=== PATIENT | male | born 1960 | race Caucasian/White ===

== ENCOUNTER 2023-01-19 16:30 | Inpatient (IN) ==
[2023-01-19 17:43] LABS: Basophils # (auto) 0.04 K/uL (0.00-0.20); Basophils % (auto) 0.5 %; Eosinophils # (auto) 0.14 K/uL (0.00-0.50); Eosinophils % (auto) 1.7 %; Hematocrit (blood only) 24.5 % (42.0-52.0); Hemoglobin 8.5 g/dl (14.0-18.0); Immature Granulocytes # (auto) 0.03 K/uL (0.01-0.20); Immature Granulocytes % (auto) 0.4 %; Lymphocytes # (auto) 0.86 K/uL (1.20-3.40); Lymphocytes % (auto) 10.4 %; Mean Corpuscular Hemoglobin 29.3 pg (25.0-34.0); Mean Corpuscular Hgb Conc 34.7 g/dL (32.0-36.0); Mean Corpuscular Volume 84.5 fL (80.0-100.0); Mean Platelet Volume 10.1 fL (9.4-12.4); Monocytes # (auto) 1.14 K/uL (0.11-0.59); Monocytes % (auto) 13.8 %; Neutrophils # (auto) 6.08 K/uL (1.40-6.50); Neutrophils % (auto) 73.2 %; Platelet Count 116 K/uL (130-400); RDW Coefficient of Variation 21.6 % (11.5-14.5); RDW Standard Deviation 64.1 fL (36.4-46.3); White Blood Count 8.29 K/ul (4.8-10.8)
[2023-01-19 17:53] LABS: Albumin Globulin Ratio 0.8 (0.9-2); Albumin Level 2.7 gm/dl (3.4-5.0); BUN Creatinine Ratio 20.3 (10-20); Bilirubin,Total 11.8 mg/dl (0.2-1.0); Calcium 7.7 mg/dl (8.6-10.3); Creatinine Clr Calc Pharmacy 124.5 ml/min; Est GFR (African American) 127.5 ml/min; Globulin 3.4 gm/dl (2.5-4.0); Potassium 3.5 mmol/L (3.5-5.1); Total Protein 6.1 gm/dl (6.0-8.3)
[2023-01-19 17:59] LABS: Troponin I High Sensitivity 10.6 pg/ml (0-20)
[2023-01-19 18:04] LABS: INR 1.2 (0.9-1.1); Prothrombin Time 13.1 Seconds (9.0-12.0)
[2023-01-19 18:16] LABS: Anisocytosis Present; Target Cells 2+
[2023-01-19] MEDS ORDERED: ONDANSETRON INJ 2 MG/ML 2 ML VIAL IV STA (18:38)
[2023-01-19] MEDS ORDERED: HYDROmorphone INJ 0.5 MG/0.5 ML SYR IV PRN (18:38)
[2023-01-19] MEDS: SODIUM CHLORIDE 0.9% 500 ML IV SCH (18:52)
--- NOTE | 2023-01-19 19:37 | Emergency Department Note ---
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 His GI procedure notes were reviewed. Patient had blood work and imaging ordered here. He was treated with IV Dilaudid and felt significantly better. Patient was gently hydrated. He had a CT scan with IV contrast performed. Patient had a mild anemia and thrombocytopenia on CBC but no leukocytosis. This is stable for him. Chemistry panel revealed hyponatremia. This is worse than prior. Patient was found to have an elevated bilirubin, alkaline phosphatase and AST. I did consult with [facility], . He was familiar with the patient's case. We did review the findings. Patient had a discharge total bilirubin of 11.4. Given the fact that his LFTs are similar it did not appear that there was a significant stent issue. He had no perforation on CT imaging. Patient prefers to stay here for work-up of this hyponatremia and significant ascites. Suspect this is related to his malignancy. [facility] felt that that is reasonable and they are available for consultation if necessary. Patient was reassessed and was pain-free. He was comfortable with the plan. Consultation was made with Dr. Reed, [facility] hospitalist service. Case was discussed and diagnostics were reviewed. Patient was evaluated in ER for further management. Care/management discussed with: Discussed with strategic manager Level of care consideration(s): After review of the information above and other included data, I feel the giorgio ent requires escalation of care to admission Triage Nursing notes: reviewed and agree them. Vital Signs: reviewed and remarkable for no significant abnormalities Additional History obtained from: Patient's regarding his recent hospitalizations Chronic Medical/Social Conditions affecting care: Metastatic cancer Prior /Outside records reviewed: GI information from [facility] reviewed. Prior hospitalization record reviewed regarding ERCP and transfer. Differential Diagnosis: Complication of metastatic cancer, complication of recent stenting procedures, pancreatitis, cholangitis, appendicitis, infections, diverticulitis, UTI, obstruction, mesenteric ischemia, aortic pathology, inflammatory bowel disease, renal colic, PUD, hernia, volvulus, constipation, as well as other pathologies. Diagnostics, independently interpreted by me: ECG: Twelve-lead ECG reveals a sinus rhythm with short MA at [address] and T wave abnormality. No ST elevation. Cardiac Monitoring: Cardiac monitoring ordered by me: The patient was placed on continuous cardiac monitoring and observed. It revealed a sinus rhythm at 85 bpm Medical decision rules: none Imaging studies: CT scan as noted above. Ascites. No free air. Bilateral pleural effusions noted. I refer you to the EMR for further details. HPI: The patient is a 62-year-old male who arrives for evaluation of abdominal pain. Patient recently was admitted to the hospital and had stents placed in his bile duct. He was transferred to [place] and they replaced his stents. Patient also noted that he had a mucosal perforation repaired endoscopically. Rates his pain as a 4 out of 10. His abdomen started to get more distended over the last several days. notes he is becoming more jaundiced. Patient has a history of metastatic colon cancer. Prior to transfer he was found to have lesions in the liver Pt denies LOC, headache, fevers, chills, diaphoresis, neck pain, chest pain, breathing difficulties, nausea, vomiting, back pain, melena, hematochezia, urinary symptoms, numbness, weakness, rash, or other complaints. PAST MEDICAL HISTORY: See Below, metastatic colon cancer PAST SURGICAL HISTORY: See Below, ERCP SOCIAL HISTORY: See Below, HOME MEDICATIONS: See Below ALLERGIES: See Below VITALS: See Below PHYSICAL EXAMINATION: GENERAL: Awake, alert, uncomfortable-appearing, in no distress HENT: Normocephalic, atraumatic. Oropharynx unremarkable. EYES: Normal conjunctiva. Sclera moderately-icteric. NECK: Inspection normal. Non-tender. Supple. No nuchal rigidity. FROM. No masses. RESPIRATORY: Clear to auscultation. No wheezes. No rales. Normal respiratory effort. CARDIAC: Normal rate. Normal rhythm. No murmurs. No rubs. Extremities warm and well perfused. Pulses equal. No JVD. GI: Soft, moderate-distended. Upper tenderness to palpation. No rebound or guarding. No masses. RECTAL: Deferred. MUSCULOSKELETAL: Atraumatic. Chest examination reveals no tenderness. The back is symmetrical on inspection without obvious abnormality. There is no CVA tenderness to palpation. No joint edema. LOWER EXTREMITIES: Calves are equal size bilaterally and non-tender. 2+ edema. No discoloration. NEURO: Normal sensorium. No sensory or motor deficits noted. SKIN: No rash. Moderate jaundice noted. 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 Surgical History H/O thumb surgery repair of amputation right distal phalanx of thumb History of surgery of liver S/P boone Family History Aunt Colon cancer, Onset Age: 65 Paternal Father Cancer unspecified Uncle Bone cancer, Onset Age: 60 Paternal Mother Heart disease Myocardial infarction 2x Hypertension Social History Smoking Status: Current every day smoker Tobacco Type: Cigars Second Hand Exposure: Yes; Do You Dip or Chew Tobacco: Yes (quit 10-15 years ago); Hx Alcohol Use: No Hx Substance Use: No Preferred Language: Moroccan Communication Ability: Effective Power Regulator Required: No Beliefs That Will Affect Care: None marital status: Current Living Situation: Spouse current occupational status: previously employed current occupation: [employer] How many Children do You have: 2 Feels Safe at Home: Yes Assistive Devices: None Allergies Allergies Allergy/AdvReac Type Severity Reaction Status Date / Time No Known Allergies Allergy Verified 01/04/23 13:38 Home Meds Home Medications Medication Instructions Recorded Confirmed amoxicillin 875 mg-potassium 1 tab PO UD 01/19/23 01/19/23 clavulanate 125 mg tablet pantoprazole 40 mg tablet,delayed 40 mg PO BID 01/19/23 01/19/23 release Results & Data (ED) Vital Signs Vital Signs - 24 hr 01/19/23 16:54 01/19/23 19:18 01/19/23 19:30 Temperature 36.9 C Temperature Source Temporal Artery Scan Pulse Rate 90 91 H 87 Respiratory Rate 16 22 Respiratory Effort / Characteristics Non-Labored Spontaneous Respiratory Depth Normal Respiratory Pattern Regular Blood Pressure 118/78 120/78 Blood Pressure Mean 91 92 Pulse Oximetry 97 92 Oxygen Delivery Method Room Air Sepsis Recent Fever Within 48 Hours No Sepsis New/Unexplained Change in Mental Status N/A Sepsis Action Taken by Nursing No Action Required 01/19/23 20:30 01/19/23 21:00 01/19/23 21:30 Temperature Temperature Source Pulse Rate 87 85 85 Respiratory Rate 19 18 19 Respiratory Effort / Characteristics Respiratory Depth Respiratory Pattern Blood Pressure 132/80 120/76 116/70 Blood Pressure Mean 97 90 85 Pulse Oximetry 93 93 90 Oxygen Delivery Method Sepsis Recent Fever Within 48 Hours Sepsis New/Unexplained Change in Mental Status Sepsis Action Taken by Nursing Laboratory Data 01/19/23 17:11 01/19/23 17:11 Lab Results 01/19/23 01/19/23 01/19/23 Range/Units 17:11 17:11 17:11 WBC 8.29 (4.8-10.8) K/ul RBC 2.90 L (4.70-6.10) M/uL Hgb 8.5 L (14.0-18.0) g/dl Hct 24.5 L (42.0-52.0) % MCV 84.5 (80.0-100.0) fL MCH 29.3 (25.0-34.0) pg MCHC 34.7 (32.0-36.0) g/dL RDW Std Deviation 64.1 H (36.4-46.3) fL RDW Coeff of Alex 21.6 H (11.5-14.5) % Plt Count 116 L (130-400) K/uL MPV 10.1 (9.4-12.4) fL Immature Gran % (Auto) 0.4 % Neut % (Auto) 73.2 % Lymph % (Auto) 10.4 % [place] % (Auto) 13.8 % Eos % (Auto) 1.7 % Baso % (Auto) 0.5 % Neut # (Auto) 6.08 (1.40-6.50) K/uL Lymph # (Auto) 0.86 L (1.20-3.40) K/uL [place] # (Auto) 1.14 H (0.11-0.59) K/uL Eos # (Auto) 0.14 (0.00-0.50) K/uL Baso # (Auto) 0.04 (0.00-0.20) K/uL Immature Gran # (Auto) 0.03 (0.01-0.20) K/uL Anisocytosis Present Target Cells 2+ PT 13.1 H (9.0-12.0) Seconds INR 1.2 H (0.9-1.1) Sodium 127 L (136-145) mmol/L Potassium 3.5 (3.5-5.1) mmol/L Chloride 98 (98-107) mmol/L Carbon Dioxide 22 (21-32) mmol/L Anion Gap 7 (3-11) BUN 12 (6-23) mg/dl Creatinine 0.59 L (0.6-1.4) mg/dl Est Cr Clr Drug Dosing 124.5 ml/min Est GFR ( Amer) 127.5 ml/min Est GFR (Non-Af Amer) 110.0 ml/min BUN/Creatinine Ratio 20.3 H (10-20) Glucose 165 H (70-99(Fasting)) mg/dl Calcium 7.7 L (8.6-10.3) mg/dl Total Bilirubin 11.8 H (0.2-1.0) mg/dl AST 73 H (13-39) U/L ALT 43 (7-52) U/L Alkaline Phosphatase 441 H (34-104) U/L Troponin I High Sens 10.6 (0-20) pg/ml Total Protein 6.1 (6.0-8.3) gm/dl Albumin 2.7 L (3.4-5.0) gm/dl Globulin 3.4 (2.5-4.0) gm/dl Albumin/Globulin Ratio 0.8 L (0.9-2) Lipase 54 (11-82) U/L Administered Medications Hydromorphone HCl (Hydromorphone Inj 0.5 Mg/0.5 Ml Syr) 0.5 mg IV Q15M PRN PRN Reason: Pain Stop: 02/02/23 18:37 Last Admin: 01/19/23 18:57 Dose: 0.5 mg Documented By: NRB Sodium Chloride (Nss) 500 mls @ 80 mls/hr IV .Q6H15M JIL Stop: 02/18/23 18:44 Last Admin: 01/19/23 18:52 Dose: 80 mls/hr Documented By: NRB Discontinued Medications Ioversol (Optiray 320 100ml) 91 ml IV ONCE ONE Stop: 01/19/23 20:08 Last Admin: 01/19/23 20:07 Dose: 91 ml Documented By: JOB Ondansetron HCl (Ondansetron Inj 2 Mg/Ml 2 Ml Vial) 4 mg IV NOW STA Stop: 01/19/23 18:39 Last Admin: 01/19/23 18:52 Dose: 4 mg Documented By: DEBRA Imaging Data Radiologist's Impression: Abdomen/Pelvis CT 01/19/23 18:37 Exam(s): CT ABDOMEN + PELVIS With Contrast IV Amt: 91 ml opti 320 EXAM: CT Abdomen and Pelvis With Intravenous Contrast CLINICAL HISTORY: Reason for exam: elevated lfts, recent endoscopy, abd distension. TECHNIQUE: Axial computed tomography images of the abdomen and pelvis with intravenous contrast. CTDI is 20.56 mGy and DLP is 1062.38 mGy-cm. Automated exposure control was utilized for the study. A dose lowering technique was utilized adhering to the principles of ALARA. CONTRAST: Patient received 91 ml opti 320 of IV contrast COMPARISON: MRCP on 01/08/2023. CT abdomen/pelvis on 01/03/2023. FINDINGS: Lung bases: Dependent atelectasis bilaterally. Pleural space: Moderate bilateral pleural effusions. Mediastinum: Mild prominence of the santamaria of the distal esophagus may represent esophagitis. ABDOMEN: Liver: Hypoattenuating masses, most prominently in the right liver, concerning for hepatic metastases. Surgical clips along the liver. Gallbladder and bile ducts: Prior cholecystectomy. Common bile duct stent in place. Pneumobilia. Pancreas: Mild atrophy of the pancreas. No ductal dilation. Spleen: Unremarkable. No splenomegaly. Adrenals: Unremarkable. No mass. Kidneys and ureters: Unremarkable. No hydronephrosis or obstructing stone. Stomach and bowel: Wall thickening of the stomach may be secondary to under distention versus gastritis versus neoplasm. Asymmetric thinning of the wall of the gastric antrum appears similar compared to prior exam. Mild prominence of the santamaria of the colon may be secondary to underdistention. Colitis is not excluded. Fluid and gas-filled small bowel loops with mild prominence of the small bowel santamaria. Question enteritis. PELVIS: Appendix: No findings to suggest acute appendicitis. Bladder: Unremarkable. No mass. Reproductive: Unremarkable as visualized. ABDOMEN and PELVIS: Intraperitoneal space: Large amount of ascites. No free air. Bones/joints: Degenerative changes of the spine. Bilateral L4 pars defects. Grade 1 anterolisthesis of L4 on L5. No acute fracture. No dislocation. Soft tissues: Mild bilateral gynecomastia. Small umbilical hernia containing fat and fluid. [place] protrusion along the upper anterior abdominal wall. Vasculature: Atherosclerotic changes of the vasculature. No aortic aneurysm or dissection. Lymph nodes: Unremarkable. No enlarged lymph nodes. IMPRESSION: 1. Mild prominence of the santamaria of the distal esophagus may represent esophagitis. 2. Wall thickening of the stomach may be secondary to under distention versus gastritis versus neoplasm. Asymmetric thinning of the wall of the gastric antrum appears similar compared to prior exam. 3. Hypoattenuating masses again noted, most prominently in the right liver, concerning for hepatic metastases. 4. Mild prominence of the santamaria of the colon may be secondary to underdistention. Colitis is not excluded. 5. Fluid and gas-filled small bowel loops with mild prominence of the small bowel santamaria. Question enteritis. 6. Large amount of ascites. 7. Moderate bilateral pleural effusions. Electronically signed by: Reggie Echeverria M.D. 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
[2023-01-19] MEDS ORDERED: OPTIRAY 320 100ml IV ONE (20:07)
--- NOTE | 2023-01-19 21:05 | CT Scan Report ---
Exam(s): CT ABDOMEN + PELVIS With Contrast IV Amt: 91 ml opti 320 EXAM: CT Abdomen and Pelvis With Intravenous Contrast CLINICAL HISTORY: Reason for exam: elevated lfts, recent endoscopy, abd distension. TECHNIQUE: Axial computed tomography images of the abdomen and pelvis with intravenous contrast. CTDI is 20.56 mGy and DLP is 1062.38 mGy-cm. Automated exposure control was utilized for the study. A dose lowering technique was utilized adhering to the principles of ALARA. CONTRAST: Patient received 91 ml opti 320 of IV contrast COMPARISON: MRCP on 01/08/2023. CT abdomen/pelvis on 01/03/2023. FINDINGS: Lung bases: Dependent atelectasis bilaterally. Pleural space: Moderate bilateral pleural effusions. Mediastinum: Mild prominence of the santamaria of the distal esophagus may represent esophagitis. ABDOMEN: Liver: Hypoattenuating masses, most prominently in the right liver, concerning for hepatic metastases. Surgical clips along the liver. Gallbladder and bile ducts: Prior cholecystectomy. Common bile duct stent in place. Pneumobilia. Pancreas: Mild atrophy of the pancreas. No ductal dilation. Spleen: Unremarkable. No splenomegaly. Adrenals: Unremarkable. No mass. Kidneys and ureters: Unremarkable. No hydronephrosis or obstructing stone. Stomach and bowel: Wall thickening of the stomach may be secondary to under distention versus gastritis versus neoplasm. Asymmetric thinning of the wall of the gastric antrum appears similar compared to prior exam. Mild prominence of the santamaria of the colon may be secondary to underdistention. Colitis is not excluded. Fluid and gas-filled small bowel loops with mild prominence of the small bowel santamaria. Question enteritis. PELVIS: Appendix: No findings to suggest acute appendicitis. Bladder: Unremarkable. No mass. Reproductive: Unremarkable as visualized. ABDOMEN and PELVIS: Intraperitoneal space: Large amount of ascites. No free air. Bones/joints: Degenerative changes of the spine. Bilateral L4 pars defects. Grade 1 anterolisthesis of L4 on L5. No acute fracture. No dislocation. Soft tissues: Mild bilateral gynecomastia. Small umbilical hernia containing fat and fluid. [place] protrusion along the upper anterior abdominal wall. Vasculature: Atherosclerotic changes of the vasculature. No aortic aneurysm or dissection. Lymph nodes: Unremarkable. No enlarged lymph nodes. IMPRESSION: 1. Mild prominence of the santamaria of the distal esophagus may represent esophagitis. 2. Wall thickening of the stomach may be secondary to under distention versus gastritis versus neoplasm. Asymmetric thinning of the wall of the gastric antrum appears similar compared to prior exam. 3. Hypoattenuating masses again noted, most prominently in the right liver, concerning for hepatic metastases. 4. Mild prominence of the santamaria of the colon may be secondary to underdistention. Colitis is not excluded. 5. Fluid and gas-filled small bowel loops with mild prominence of the small bowel santamaria. Question enteritis. 6. Large amount of ascites. 7. Moderate bilateral pleural effusions. Electronically signed by: Reggie Echeverria M.D. 01/19/23 21:04 PM
--- NOTE | 2023-01-20 01:19 | History & Physical Report ---
Date of Service January 20, 2023 Assessment & Plan (1) Elevated LFTs: Plan: 62-year-old male with past medical significant for rectal cancer stage IV with metastatic to liver and acquired thrombocytopenia present abdominal pain and elevated LFTs. Elevated LFTs History of rectal cancer stage IV with mets to liver Recently he had had biliary stent placement and was transferred to [place] where stent exchange was done Total bili 11.8 today seems to close to discharged from [facility] couple of days ago ER talk to [facility] on-call and was okay to observe patient here in the hospital and to call them if necessary We will follow repeat labs Consult GI in a.m. Ascites May need to be tapped Consult GI in a.m. for recommendations Hyponatremia Sodium 127 We will follow urine sodium and urine osmolality and serum osmolality Getting gentle fluids Further repeat labs in a.m. Consult nephrology Esophagitis On Protonix Hypocalcemia We will check vitamin D level We will place him calcium supplements History of thrombocytopenia Platelets 116 DVT prophylaxis. Lovenox. Follow platelets Disposition med/telemetry Full code as per discussion with the patient History of Present Illness Chief Complaint: Abdominal pain and elevated LFTs Primary Care Provider: Jose Baeza MD 62-year-old male with past medical significant for rectal cancer stage IV with metastatic to liver and acquired thrombocytopenia presents with abdominal pain and elevated LFTs. Patient was recently in the hospital with hyper bilirubinemia and right upper quadrant abdominal pain pain. S/p endoscopic ultrasound with ERCP with Dr. Desai on January 10, 20[address] prophylactic pancreatic stent and also short biliary stent. 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 Patient was transferred to [facility] and seems patient has stent exchange. Patient states his bilirubin was decreasing and he was discharged couple of days ago. Again patient says he was turning yellow and developing abdominal pain so came to the hospital. ER patient talked with [facility] doctor international guest coordinator who was familiar with the patient's case. Seems patient's bilirubin was 11.4 on discharge from [facility] and today 11.8. Also CT abdomen pelvis seems no acute findings and [facility] recommended to observe patient here and consult them if necessary. Patient denies any fevers. No headache. Has some back pain from abdominal bloating. Some nausea. Poor appetite. No difficulty swallowing. Has dry cough. Has on and off runny nose. No chest pain. Has some shortness of breath on exertion. Normal bowel and bladder movements. Says he cannot ambulate much because of shortness of breath on exertion. Currently hemodynamically stable. Past medical history as mentioned above. Past surgical history. Colonoscopy. History of surgery of liver. ERCP. S/p cholecystectomy. Social history. History of smoking present. No alcohol use. No drug use. Family history. Mother had DE. And hypertension. Father had cancer. Paternal aunt has colon cancer. 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 Surgical History H/O thumb surgery repair of amputation right distal phalanx of thumb History of surgery of liver S/P boone Family History Aunt Colon cancer, Onset Age: 65 Paternal Father Cancer unspecified Uncle Bone cancer, Onset Age: 60 Paternal Mother Heart disease Myocardial infarction 2x Hypertension Social History Smoking Status: Current every day smoker Tobacco Type: Cigars Second Hand Exposure: Yes; Do You Dip or Chew Tobacco: Yes (quit 10-15 years ago); Hx Alcohol Use: No Hx Substance Use: No Preferred Language: Irish Communication Ability: Effective Meat Stock Clerk Required: No Beliefs That Will Affect Care: None marital status: Current Living Situation: Spouse current occupational status: previously employed 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 Head- atraumatic Eyes- PERRL. ENT- oropharynx clear Neck- supple, no JVD Lungs- clear to auscultation no wheezing or crackles. Heart- regular rhythm; no murmur, no gallop. Abdomen- normal bowel sounds, distended, mild diffuse tender. Extremities- no pretibial edema. Neuro- alert, oriented x 3; PERRL, no facial palsy; no dysarthria;non focal. Skin- yellowish discoloration. Results & Data Results & Data Vital Signs (Past 12 Hours) Vital Signs Temp Pulse Resp BP Pulse Ox O2 Del Method 01/20/23 00:00 80 19 122/72 91 01/19/23 23:30 77 15 114/72 90 01/19/23 23:00 80 18 112/68 92 01/19/23 22:30 81 19 125/72 92 01/19/23 22:00 81 15 121/69 93 01/19/23 23:16 79 01/19/23 21:30 85 19 116/70 90 01/19/23 21:00 85 18 120/76 93 01/19/23 20:30 87 19 132/80 93 01/19/23 19:30 87 22 120/78 92 01/19/23 19:18 91 H 01/19/23 16:54 36.9 C 90 16 118/78 97 Room Air Diagnostic Findings Laboratory Results WBC 8.29 K/ul (4.8-10.8) 01/19/23 17:11 RBC 2.90 M/uL (4.70-6.10) L 01/19/23 17:11 Hgb 8.5 g/dl (14.0-18.0) L 01/19/23 17:11 Hct 24.5 % (42.0-52.0) L 01/19/23 17:11 MCV 84.5 fL (80.0-100.0) 01/19/23 17:11 MCH 29.3 pg (25.0-34.0) 01/19/23 17:11 MCHC 34.7 g/dL (32.0-36.0) 01/19/23 17:11 RDW Std Deviation 64.1 fL (36.4-46.3) H 01/19/23 17:11 RDW Coeff of Alex 21.6 % (11.5-14.5) H 01/19/23 17:11 Plt Count 116 K/uL (130-400) L 01/19/23 17:11 MPV 10.1 fL (9.4-12.4) 01/19/23 17:11 Immature Gran % (Auto) 0.4 % 01/19/23 17:11 Neut % (Auto) 73.2 % 01/19/23 17:11 Lymph % (Auto) 10.4 % 01/19/23 17:11 Meade % (Auto) 13.8 % 01/19/23 17:11 Eos % (Auto) 1.7 % 01/19/23 17:11 Baso % (Auto) 0.5 % 01/19/23 17:11 Neut # (Auto) 6.08 K/uL (1.40-6.50) 01/19/23 17:11 Lymph # (Auto) 0.86 K/uL (1.20-3.40) L 01/19/23 17:11 Meade # (Auto) 1.14 K/uL (0.11-0.59) H 01/19/23 17:11 Eos # (Auto) 0.14 K/uL (0.00-0.50) 01/19/23 17:11 Baso # (Auto) 0.04 K/uL (0.00-0.20) 01/19/23 17:11 Immature Gran # (Auto) 0.03 K/uL (0.01-0.20) 01/19/23 17:11 Anisocytosis Present 01/19/23 17:11 Target Cells 2+ 01/19/23 17:11 PT 13.1 Seconds (9.0-12.0) H 01/19/23 17:11 INR 1.2 (0.9-1.1) H 01/19/23 17:11 Sodium 127 mmol/L (136-145) L 01/19/23 17:11 Potassium 3.5 mmol/L (3.5-5.1) 01/19/23 17:11 Chloride 98 mmol/L (98-107) 01/19/23 17:11 Carbon Dioxide 22 mmol/L (21-32) 01/19/23 17:11 Anion Gap 7 (3-11) 01/19/23 17:11 BUN 12 mg/dl (6-23) 01/19/23 17:11 Creatinine 0.59 mg/dl (0.6-1.4) L 01/19/23 17:11 Est Cr Clr Drug Dosing 124.5 ml/min 01/19/23 17:11 Est GFR ( Amer) 127.5 ml/min 01/19/23 17:11 Est GFR (Non-Af Amer) 110.0 ml/min 01/19/23 17:11 BUN/Creatinine Ratio 20.3 (10-20) H 01/19/23 17:11 Glucose 165 mg/dl (70-99(Fasting)) H 01/19/23 17:11 Calcium 7.7 mg/dl (8.6-10.3) L 01/19/23 17:11 Total Bilirubin 11.8 mg/dl (0.2-1.0) H 01/19/23 17:11 AST 73 U/L (13-39) H 01/19/23 17:11 ALT 43 U/L (7-52) 01/19/23 17:11 Alkaline Phosphatase 441 U/L (34-104) H 01/19/23 17:11 Troponin I High Sens 10.6 pg/ml (0-20) 01/19/23 17:11 Total Protein 6.1 gm/dl (6.0-8.3) 01/19/23 17:11 Albumin 2.7 gm/dl (3.4-5.0) L 01/19/23 17:11 Globulin 3.4 gm/dl (2.5-4.0) 01/19/23 17:11 Albumin/Globulin Ratio 0.8 (0.9-2) L 01/19/23 17:11 Lipase 54 U/L (11-82) 01/19/23 17:11 Impressions Abdomen/Pelvis CT 01/19/23 18:37 Exam(s): CT ABDOMEN + PELVIS With Contrast IV Amt: 91 ml opti 320 EXAM: CT Abdomen and Pelvis With Intravenous Contrast CLINICAL HISTORY: Reason for exam: elevated lfts, recent endoscopy, abd distension. TECHNIQUE: Axial computed tomography images of the abdomen and pelvis with intravenous contrast. CTDI is 20.56 mGy and DLP is 1062.38 mGy-cm. Automated exposure control was utilized for the study. A dose lowering technique was utilized adhering to the principles of ALARA. CONTRAST: Patient received 91 ml opti 320 of IV contrast COMPARISON: MRCP on 01/08/2023. CT abdomen/pelvis on 01/03/2023. FINDINGS: Lung bases: Dependent atelectasis bilaterally. Pleural space: Moderate bilateral pleural effusions. Mediastinum: Mild prominence of the santamaria of the distal esophagus may represent esophagitis. ABDOMEN: Liver: Hypoattenuating masses, most prominently in the right liver, concerning for hepatic metastases. Surgical clips along the liver. Gallbladder and bile ducts: Prior cholecystectomy. Common bile duct stent in place. Pneumobilia. Pancreas: Mild atrophy of the pancreas. No ductal dilation. Spleen: Unremarkable. No splenomegaly. Adrenals: Unremarkable. No mass. Kidneys and ureters: Unremarkable. No hydronephrosis or obstructing stone. Stomach and bowel: Wall thickening of the stomach may be secondary to under distention versus gastritis versus neoplasm. Asymmetric thinning of the wall of the gastric antrum appears similar compared to prior exam. Mild prominence of the santamaria of the colon may be secondary to underdistention. Colitis is not excluded. Fluid and gas-filled small bowel loops with mild prominence of the small bowel santamaria. Question enteritis. PELVIS: Appendix: No findings to suggest acute appendicitis. Bladder: Unremarkable. No mass. Reproductive: Unremarkable as visualized. ABDOMEN and PELVIS: Intraperitoneal space: Large amount of ascites. No free air. Bones/joints: Degenerative changes of the spine. Bilateral L4 pars defects. Grade 1 anterolisthesis of L4 on L5. No acute fracture. No dislocation. Soft tissues: Mild bilateral gynecomastia. Small umbilical hernia containing fat and fluid. [place] protrusion along the upper anterior abdominal wall. Vasculature: Atherosclerotic changes of the vasculature. No aortic aneurysm or dissection. Lymph nodes: Unremarkable. No enlarged lymph nodes. IMPRESSION: 1. Mild prominence of the santamaria of the distal esophagus may represent esophagitis. 2. Wall thickening of the stomach may be secondary to under distention versus gastritis versus neoplasm. Asymmetric thinning of the wall of the gastric antrum appears similar compared to prior exam. 3. Hypoattenuating masses again noted, most prominently in the right liver, concerning for hepatic metastases. 4. Mild prominence of the santamaria of the colon may be secondary to underdistention. Colitis is not excluded. 5. Fluid and gas-filled small bowel loops with mild prominence of the small bowel santamaria. Question enteritis. 6. Large amount of ascites. 7. Moderate bilateral pleural effusions. Electronically signed by: Reggie Echeverria M.D. 01/19/23 21:04 PM ECG Additional Comments: ECG. Sinus rhythm with short NC rate of 86. Nonspecific ST abnormalities. Code Status & VTE Plan VTE Prophylaxis Plan VTE Prophylaxis will be ordered: Yes
[2023-01-20] MEDS: SODIUM CHLORIDE 0.9% 500 ML IV SCH (02:53)
[2023-01-20] MEDS ORDERED: ONDANSETRON INJ 2 MG/ML 2 ML VIAL IV PRN (03:09)
[2023-01-20] MEDS ORDERED: NITROGLYCERIN SL 0.4 MG/TAB TAB SL PRN (03:09)
[2023-01-20] MEDS ORDERED: POLYETHYLENE (MIRALAX) 17 GM PACK PO PRN (03:09)
[2023-01-20 04:46] LABS: Basophils # (auto) 0.04 K/uL (0.00-0.20); Basophils % (auto) 0.5 %; Eosinophils # (auto) 0.25 K/uL (0.00-0.50); Eosinophils % (auto) 3.3 %; Hematocrit (blood only) 22.2 % (42.0-52.0); Immature Granulocytes # (auto) 0.03 K/uL (0.01-0.20); Immature Granulocytes % (auto) 0.4 %; Lymphocytes # (auto) 0.85 K/uL (1.20-3.40); Lymphocytes % (auto) 11.1 %; Mean Corpuscular Volume 83.1 fL (80.0-100.0); Mean Platelet Volume 9.6 fL (9.4-12.4); Monocytes # (auto) 1.31 K/uL (0.11-0.59); Monocytes % (auto) 17.1 %; Neutrophils # (auto) 5.16 K/uL (1.40-6.50); Neutrophils % (auto) 67.6 %; Platelet Count 99 K/uL (130-400); RDW Standard Deviation 62.3 fL (36.4-46.3); Red Blood Count 2.67 M/uL (4.70-6.10); White Blood Count 7.64 K/ul (4.8-10.8)
[2023-01-20 05:02] LABS: BUN Creatinine Ratio 19.3 (10-20); Calcium 7.5 mg/dl (8.6-10.3); Creatinine Clr Calc Pharmacy 128.8 ml/min; Est GFR (African American) 129.4 ml/min; Est GFR (Non-African American) 111.6 ml/min; Magnesium 1.8 mg/dl (1.7-2.4); Potassium 3.4 mmol/L (3.5-5.1)
[2023-01-20 05:03] LABS: Anisocytosis Present; Polychromasia 1+; Target Cells 1+
[2023-01-20] MEDS: SODIUM CHLORIDE 0.9% 1,000 ML IV SCH (08:15)
--- NOTE | 2023-01-20 09:03 | Nephrology Consultation ---
Date of Consultation January 20, 2023 Assessment & Plan (1) Chronic hyponatremia: presented w/ sodium 127, up to 130 this am w/ IV fluids. has been low 130s for several weeks now. goal is to keep sNa in this range or normalize if able. favor hypervolemic hyponatremia but currently responding as though volume depleted, c/w total body overload but intravascular depletion -await urine studies -supplemented K po and IV -continue low rate NS while NPO and agree w/ albumin -recheck bmp q6h while NPO -will eventually need fluid limit but defer while NPO appreciate consult; will follow w/ you. History of Present Illness Reason for Consultation: hyponatremia Requesting Physician: Dr Reed Attending Physician: Samuel Melton MD History of Present Illness 62 y/o M whom I'm asked to see for hyponatremia was admitted last evening for evaluation of abdominal pain and elevated LFTs in the setting of metastatic rectal cancer. PMH includes Stage IV rectal CA w/ liver mets, acquired thrombocytopenia, active tobacco abuse/cigarettes, chronic hyponatremia. He had liver surgery [facility] April 2022; has required paracenteses he tells me, most recently 05/2022. Pt was hospitalized here earlier this month with hyperbilirubinemia and right upper quadrant abdominal pain, s/p endoscopic ultrasound with ERCP on January 10w/ placement of prophylactic pancreatic and also short biliary stents. Ultimately the pt was transferred to [facility] for management of stricture caused by portal LAD versus surgical CBD clips; at [facility] he underwent stent exchange and was d/c a few days back. His bilirubin was 11.4 on date of [facility] discharge and on arrival here was 11.8. CT a/p overnight w/o acute changes; [facility] recommends monitoring pt here. His presenting sodium was 127, up to 130 this am. He has 500 mL NS then 50 mL hourly ever since. since late Dec 2022 at least, sodium runs low 130s in ho spital. He is NPO currently pending GI evaluation. No F or ESC[place]EDO or dysphagia. significant abdominal distension/bloating and pain > N, decreased po, back pain, exertional dsypnea. No headache or chest pain or concerns w/ bowel/bladder movements. +nonproductive cough. 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 Surgical History H/O thumb surgery repair of amputation right distal phalanx of thumb History of surgery of liver S/P boone Family History Aunt Colon cancer, Onset Age: 65 Paternal Father Cancer unspecified Uncle Bone cancer, Onset Age: 60 Paternal Mother Heart disease Myocardial infarction 2x Hypertension Social History Smoking Status: Current some day smoker Tobacco Type: Cigarettes Second Hand Exposure: No; Do You Dip or Chew Tobacco: No; Tobacco Cessation Education Requested by Patient: No Hx Alcohol Use: No Hx Substance Use: No Preferred Language: Libyan Communication Ability: Effective 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 Beliefs That Will Affect Care: None marital status: Current Living Situation: Spouse current occupational status: previously employed current occupation: [employer] How many Children do You have: 2 Feels Safe at Home: Yes Safety Concerns: Feels Safe At This Time Assistive Devices: None Review of Systems Review of Systems: All systems reviewed & are unremarkable except as noted in HPI & below Physical Exam Constitutional: well developed, well nourished, + frail appearing and cooperative; no acute distress Eyes: EOM intact bilaterally; sclerae not anicteric ENMT: Ears: no external ear abnormality Nose: no external nose abnormality Mouth: + dry oral mucous membranes Neck: no nuchal rigidity Respiratory: normal respiratory effort and + labored breathing (w/ exam maneuvers such as rolling on guerney) Auscultation: + diminished lung sounds (particularly bilateral bases) Cardiovascular: RRR, no murmur, no edema Gastrointestinal (Abdomen): Inspection/Auscultation: + abdomen distended and normal bowel sounds Percussion/Palpation: + abdomen tender, abdomen soft and + abdomen firm Musculoskeletal: Extremities: strength 5/5 throughout Skin: no rashes, warm and dry + jaundice Neurologic: soto, fluent speech, no tremor Results & Data Vital Signs (Past 12 Hours) Vital Signs Pulse Resp BP Pulse Ox O2 Del Method 01/20/23 07:00 75 18 123/83 92 Room Air 01/20/23 07:07 74 01/20/23 06:30 75 17 119/76 92 01/20/23 06:30 119/76 01/20/23 06:00 82 22 128/71 93 01/20/23 05:30 73 16 122/77 93 01/20/23 05:00 73 17 121/75 93 01/20/23 04:30 74 15 123/74 93 01/20/23 04:00 82 21 129/72 90 01/20/23 03:30 73 16 115/67 93 01/20/23 03:00 75 16 122/69 93 01/20/23 02:30 73 21 123/67 94 01/20/23 02:00 76 21 117/69 93 01/20/23 01:30 82 21 102/48 L 93 01/20/23 01:00 79 18 122/65 91 01/20/23 00:30 84 18 123/69 91 01/20/23 00:00 80 19 122/72 91 01/19/23 23:30 77 15 114/72 90 01/19/23 23:00 80 18 112/68 92 01/19/23 22:30 81 19 125/72 92 01/19/23 22:00 81 15 121/69 93 01/19/23 23:16 79 01/19/23 21:30 85 19 116/70 90 01/19/23 21:00 85 18 120/76 93 Laboratory Results 01/20/23 04:26 01/20/23 04:[address] a/p w/ con
[2023-01-20] MEDS ORDERED: POTASSIUM CHLORIDE CRTAB 20 MEQ TABCR PO ONE ×2 (09:15→16:45)
[2023-01-20] MEDS: AMOXICILLIN/CLAVULANATE 875 MG TAB PO SCH ×2 (09:55→17:02)
[2023-01-20] MEDS: CALCIUM 600MG + VIT D 400 IU TAB PO SCH ×2 (09:56→21:43)
[2023-01-20] MEDS: PANTOprazole 40 MG TAB PO SCH ×2 (09:56→21:43)
[2023-01-20] MEDS: ENOXAPARIN INJ 40 MG/0.4 ML SYR SQ SCH (09:56)
--- NOTE | 2023-01-20 11:14 | Gastrointestinal Consultation ---
Date of Consultation January 20, 2023 Assessment & Plan (1) Elevated LFTs: Imaging was reviewed by Dr. Romeo. He would not benefit from repeat ERCP or other GI procedures. His elevated LFTs are secondary to the metastatic liver disease. (2) Abdominal pain: What he is describing currently seems most likely to be a result of having a bxxqddem-wb-srovi amount of ascites. his pain will likely improve with the paracentesis. However, he has a large (liver) metastatic burden and would be expected to have diffuse abdominal pain caused by that metastatic disease. Plan - Large volume paracentesis for comfort. Albumin before/after. I explained to the patient//daughter that ascitic fluid will recur. Undergoing paracentesis may improve some of his pain today but will not provide senior living pain relief. Patient/family are interested in a senior living cathetor to drain the fluid at home. I encouraged him to speak with the radiologist about his request but suspect that risks of infection may out weight benefits, especially in light of his ascites developing slowly over time so would not expect the need for frequent draining of ascitic fluid. Defer senior living pain management to his primary and oncology teams. Unfortunately due to hyperbilirubinemia he may no longer be a candidate for chemotherapy. Pt to discuss w oncology. It may be appropriate to be offering palliative care/comfort care which I briefly mentioned to the pt and family but did not cover in detail. Would defer possible other treatment options to his oncologist. No indication for repeat GI procedures. GI will sign off. History of Present Illness Reason for Consultation: Elevated LFTs Requesting Physician: Dr. Reed Attending Physician: Samuel Melton MD History of Present Illness Mr. Brodie Osorio is a 62 yr old [facility] w a hx of Colon ca w liver mets, probably cirrhosis who was admitted herer for GI upper abd pain/GI bleeding 2 wks at that time underwent EGD on 01/04 w non bleeding Grade II EV w/o evidence of bleeding. Then a few days later, returned w RUQ pain and bili of 11 and underwent EUS on 01/10/[address] Desai w liver mets, and ERCP w a CBD stricture that was stented. Soon after the ERCP, he was transferred to [facility] and underwent stent placement. He was discharged from there a few days ago and presented to the ED late yesterday for pain. On arrival here yesterday, T bili 11 (similar to prior to stenting) and CTAP w several abnormalities but pneumobilia was present suggesting patency of the recently placed CBD stents. When talking with him about his exact reason for coming to the ED, it was diffuse abdominal pain that has been present for weeks and has become much worse in the last day or two. Also describes vague discomfort in the mid back. He cites fullness over his entire abdomen and says that he has some chest discomfort with a deep breath, and feels a bit short of breath when he tries to be active. He has a poor appetite but has not had nausea or vomiting since DC from [place] a few days ago. He denies constipation or diarrhea. No blood in his bowel movements. No hematemesis. He is not had fevers. 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 Surgical History H/O thumb surgery repair of amputation right distal phalanx of thumb History of surgery of liver S/P boone Family History Aunt Colon cancer, Onset Age: 65 Paternal Father Cancer unspecified Uncle Bone cancer, Onset Age: 60 Paternal Mother Heart disease Myocardial infarction 2x Hypertension Social History Smoking Status: Current every day smoker Tobacco Type: Cigars Second Hand Exposure: Yes; Do You Dip or Chew Tobacco: Yes (quit 10-15 years ago); Hx Alcohol Use: No Hx Substance Use: No Preferred Language: Romanian Communication Ability: Effective Manager Management Required: No Beliefs That Will Affect Care: Spiritual marital status: Current Living Situation: Spouse current occupational status: previously employed current occupation: [employer] How many Children do You have: 2 Feels Safe at Home: Yes Assistive Devices: None Review of Systems Review of Systems: ROS: Gen: Denies weakness, fevers, weight loss Eyes: No eye redness, or pain, no recent vision changes Resp: No SOB, no cough Cardio: No palpitations/irregular beats, no chest pain GI: As per HPI, otherwise (-) : Denies pain on urination Skin: No jaundice, itching or new rashes Physical Exam Constitutional: well developed, + ill appearing, + thin and cooperative Eyes: + icterus; pupils equal, reactive. ENMT: external ear and nose normal, oropharynx normal Neck: trachea midline, no thyromegaly Respiratory: normal respiratory effort, lungs clear to auscultation Cardiovascular: RRR, no murmur, no edema Gastrointestinal (Abdomen): Moderate ascites, not tense, diffuse discomfort over the entire abdomen. bowel sounds present. Results & Data Vital Signs (Past 12 Hours) Vital Signs Pulse Resp BP Pulse Ox O2 Del Method 01/20/23 07:00 75 18 123/83 92 Room Air 01/20/23 07:07 74 01/20/23 06:30 75 17 119/76 92 01/20/23 06:30 119/76 01/20/23 06:00 82 22 128/71 93 01/20/23 05:30 73 16 122/77 93 01/20/23 05:00 73 17 121/75 93 01/20/23 04:30 74 15 123/74 93 01/20/23 04:00 82 21 129/72 90 01/20/23 03:30 73 16 115/67 93 01/20/23 03:00 75 16 122/69 93 01/20/23 02:30 73 21 123/67 94 01/20/23 02:00 76 21 117/69 93 01/20/23 01:30 82 21 102/48 L 93 01/20/23 01:00 79 18 122/65 91 01/20/23 00:30 84 18 123/69 91 01/20/23 00:00 80 19 122/72 91 01/19/23 23:30 77 15 114/72 90 01/19/23 23:16 79 Laboratory Results WBC 7.4, Hb 8, Hct 22, Plts 99, Na 130, K 3.4, Cl 101, CO2 29, BUN 11, Cr 0.5, glucose 85. Diagnostic Findings CTAP w IV 01/19/23: 1. Mild prominence of the santamaria of the distal esophagus may represent esophagitis. 2. Wall thickening of the stomach may be secondary to under distention versus gastritis versus neoplasm. Asymmetric thinning of the wall of the gastric antrum appears similar compared to prior exam. 3. Hypoattenuating masses again noted, most prominently in the right liver, concerning for hepatic metastases. 4. Mild prominence of the santamaria of the colon may be secondary to underdistention. Colitis is not excluded. 5. Fluid and gas-filled small bowel loops with mild prominence of the small bowel santamaria. Question enteritis. 6. Large amount of ascites. 7. Moderate bilateral pleural effusions. EUS : - Multiple metastatic lesions were found in the left lobe of the liver. Fine needle aspiration performed. - There was no sign of significant pathology in the entire pancreas. - Endosonographic images of the left adrenal gland were unremarkable. - Ascites was found on endosonographic examination of the peritoneal cavity. - A few malignant-appearing lymph nodes were visualized in the duglas hepatis region. Fine needle aspiration performed. These are likely causing biliary obstruction. Based on the MRCP results we will proceed with ERCP today. ERCP : - The major papilla appeared normal. - A single segmental biliary stricture was found in the upper third of the main bile duct. The stricture was post-surgical and malignant appearing. - A pancreatic sphincterotomy was performed. - One biliary stent was placed into the common bile duct. - One pancreatic stent was placed into the ventral pancreatic duct.
[2023-01-20 11:25] LABS: BUN Creatinine Ratio 17.5 (10-20); Calcium 7.6 mg/dl (8.6-10.3); Creatinine Clr Calc Pharmacy 128.8 ml/min; Est GFR (African American) 129.4 ml/min; Est GFR (Non-African American) 111.6 ml/min; Potassium 3.5 mmol/L (3.5-5.1)
--- NOTE | 2023-01-20 12:19 | Electrocardiogram Report ---
Test Reason : Blood Pressure : / mmHG Vent. Rate : 086 BPM Atrial Rate : 086 BPM P-R Int : 102 ms QRS Dur : 086 ms QT Int : 366 ms P-R-T Axes : 023 031 085 degrees QTc Int : 437 ms Sinus rhythm with short WI Nonspecific ST and T wave abnormality Abnormal ECG No previous ECGs available Confirmed by Enoc Puente ([id number]) on 01/20/2023 12:18:44 PM Referred By: REFERRED SELF Confirmed By:Enoc Puente
[2023-01-20] MEDS ORDERED: ALBUMIN 25% 25 GM/100 ML VIAL IV ONE (13:18)
--- NOTE | 2023-01-20 16:15 | Ultrasound Report ---
IR paracentesis abd w/img US CLINICAL HISTORY: 62 years-old Male with malignant ascites; paracentesis for comfort. COMPARISON: CT 01/19/2023 PROCEDURE: The procedure was explained to the patient in the care including the benefits and possible risks/complications. The patient gave verbal understanding and written consent was obtained. A time -out was performed prior to the start of the procedure. The patient was placed on the ultrasound table in the supine position. Using ultrasound guidance, an appropriate procedure site in the right lower abdomen was marked. This area was then prepped and drap ed in the usual sterile fashion. Local anesthesia was achieved within 1% lidocaine. An 8-[place] cente sis catheter was then inserted. Approximately 2.8 liters of clear, yellowish fluid was removed and se nt to the lab for analysis. The catheter was removed and external pressure was held to achieve hemostasis. A sterile dressing was applied to the procedure site. The patient tolerated the procedure well without immediate complicati ons. IMPRESSION: Successful ultrasound-guided paracentesis with removal of 2.8 L of ascitic fluid ACT 112: Negative or not required by law. The above report was generated using voice recognition software. It may contain grammatical, syntax o r spelling errors. Electronically signed by: Jason Pfeiffer M.D. 01/20/2023 4:14 PM
[2023-01-20] MEDS ORDERED: ALBUMIN 25% 25 GM/100 ML VIAL IV STA (16:37)
[2023-01-20 17:42] LABS: BUN Creatinine Ratio 17.2 (10-20); Calcium 7.5 mg/dl (8.6-10.3); Est GFR (African American) 128.4 ml/min; Est GFR (Non-African American) 110.8 ml/min; Potassium 3.4 mmol/L (3.5-5.1)
[2023-01-20] MEDS: POTASSIUM CHLORIDE / WTR 10 MEQ/100 ML PLCT IV SCH ×3 (21:42→23:48)
[2023-01-21 00:07] LABS: BUN Creatinine Ratio 14.1 (10-20); Calcium 7.7 mg/dl (8.6-10.3); Creatinine Clr Calc Pharmacy 118.8 ml/min; Est GFR (African American) 123.3 ml/min; Est GFR (Non-African American) 106.4 ml/min; Potassium 4.4 mmol/L (3.5-5.1)
[2023-01-21] MEDS: POTASSIUM CHLORIDE / WTR 10 MEQ/100 ML PLCT IV SCH ×2 (00:55→07:03)
[2023-01-21] MEDS: SODIUM CHLORIDE 0.9% 1,000 ML IV SCH ×2 (07:04→07:21)
[2023-01-21 07:15] LABS: Hematocrit (blood only) 22.9 % (42.0-52.0); Hemoglobin 7.8 g/dl (14.0-18.0); Mean Corpuscular Hemoglobin 28.8 pg (25.0-34.0); Mean Corpuscular Hgb Conc 34.1 g/dL (32.0-36.0); Mean Corpuscular Volume 84.5 fL (80.0-100.0); Mean Platelet Volume 9.9 fL (9.4-12.4); Platelet Count 105 K/uL (130-400); RDW Coefficient of Variation 21.2 % (11.5-14.5); Red Blood Count 2.71 M/uL (4.70-6.10); White Blood Count 7.69 K/ul (4.8-10.8)
[2023-01-21] MEDS: AMOXICILLIN/CLAVULANATE 875 MG TAB PO SCH (07:21)
[2023-01-21] MEDS: PANTOprazole 40 MG TAB PO SCH (07:22)
[2023-01-21] MEDS: CALCIUM 600MG + VIT D 400 IU TAB PO SCH (07:22)
[2023-01-21] MEDS: ENOXAPARIN INJ 40 MG/0.4 ML SYR SQ SCH (07:23)
[2023-01-21 07:41] LABS: Albumin Globulin Ratio 0.9 (0.9-2); Albumin Level 2.5 gm/dl (3.4-5.0); BUN Creatinine Ratio 13.6 (10-20); Bilirubin,Total 11.7 mg/dl (0.2-1.0); Calcium 7.6 mg/dl (8.6-10.3); Creatinine Clr Calc Pharmacy 115.2 ml/min; Est GFR (African American) 121.8 ml/min; Est GFR (Non-African American) 105.1 ml/min; Globulin 2.9 gm/dl (2.5-4.0); Magnesium 1.8 mg/dl (1.7-2.4); Phosphorus 2.1 mg/dl (2.5-4.9); Potassium 4.2 mmol/L (3.5-5.1); Total Protein 5.4 gm/dl (6.0-8.3)
[2023-01-21] MEDS ORDERED: ERGOCALCIFEROL 50,000 UNITS 1250 MCG CAP PO SCH (09:00)
--- NOTE | 2023-01-21 11:40 | Nephrology Progress Note ---
Date of Service January 21, 2023 Assessment & Plan (1) Chronic hyponatremia: Plan: presented w/ sodium 127, up to 131 this am w/ IV fluids and after paracentesis. has been low 130s for several weeks now. goal is to keep sNa in this range or normalize if able. favor hypervolemic hyponatremia but currently responding as though volume depleted, c/w total body overload but intravascular depletion -await urine studies > these were not collected to date and not useful at this point; orders cx'd -supplemented K po and IV -continue low rate NS while NPO and agree w/ albumin -recheck bmp q6h while NPO -will eventually need fluid limit but defer while NPO reasonable from neph standpoint for d/c home NEPHRO D/C RECS K 20 mEq daily aldactone 12.5 mg daily furosemide 10 mg daily BMP w/in one week at pcp f/u f/u in neph clinic for further electrolyte/volume mgt hospital d/c appt w/ my MD partners or myself in 3-4 wks w/ BMP, serum osms, urine Na, urine osms 3-5 days before appt to be ordered by neph RN 1.5L daily FR at d/c <2 gm daily Na in diet at d/c Care coordinated w/ Dr Melton Admission and Anticipated Discharge Date Admission Date: January 20, 2023 Subjective no interval events clinically except paracentesis yesterday 2.8 L; feels improved; desires d/c home Review of Systems Review of Systems: All systems reviewed & are unremarkable except as noted in Subjective Physical Exam Constitutional: well developed, well nourished, + frail appearing and cooperative; no acute distress Eyes: EOM intact bilaterally; sclerae not anicteric ENMT: Ears: no external ear abnormality Nose: no external nose abnormality Mouth: + dry oral mucous membranes Neck: no nuchal rigidity Respiratory: normal respiratory effort; no labored breathing Auscultation: + diminished lung sounds (particularly bilateral bases) Cardiovascular: RRR, no murmur, no edema Gastrointestinal (Abdomen): Inspection/Auscultation: + abdomen distended and normal bowel sounds Percussion/Palpation: + abdomen tender, abdomen soft and + abdomen firm Musculoskeletal: Extremities: strength 5/5 throughout Skin: no rashes, warm and dry + jaundice Neurologic: [place], fluent speech, no tremor Results & Data Vital Signs (Past 12 Hours) Vital Signs Temp Pulse Pulse Resp BP Pulse Ox O2 Del Method 01/21/23 11:21 36.6 C 79 20 128/73 92 Room Air 01/21/23 07:18 Room Air 01/21/23 05:59 77 01/21/23 08:03 36.8 C 75 18 136/81 94 Room Air 01/21/23 08:03 37.0 C 78 18 132/70 93 Room Air 01/21/23 07:49 74 01/21/23 03:25 37.1 C 78 18 113/64 93 Room Air 01/21/23 02:00 80 Laboratory Results 01/21/23 06:05 01/21/23 06:[address] a/p w/ con IMPRESSION: 1. Mild prominence of the santamaria of the distal esophagus may represent esophagitis. 2. Wall thickening of the stomach may be secondary to under distention versus gastritis versus neoplasm. Asymmetric thinning of the wall of the gastric antrum appears similar compared to prior exam. 3. Hypoattenuating masses again noted, most prominently in the right liver, concerning for hepatic metastases. 4. Mild prominence of the santamaria of the colon may be secondary to underdistention. Colitis is not excluded. 5. Fluid and gas-filled small bowel loops with mild prominence of the small bowel santamaria. Question enteritis. 6. Large amount of ascites. 7. Moderate bilateral pleural effusions.
--- NOTE | 2023-01-21 12:47 | Discharge Summary ---
Date of Service January 21, 2023 Admission HPI Per Admitting Provider 62-year-old male with past medical significant for rectal cancer stage IV with metastatic to liver and acquired thrombocytopenia presents with abdominal pain and elevated LFTs. Patient was recently in the hospital with hyper bilirubinemia and right upper quadrant abdominal pain pain. S/p endoscopic ultrasound with ERCP with Dr. Desai on January 10, [address] prophylactic pancreatic stent and also short biliary stent. 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 Patient was transferred to [facility] and seems patient has stent exchange. Patient states his bilirubin was decreasing and he was discharged couple of days ago. Again patient says he was turning yellow and developing abdominal pain so came to the hospital. ER patient talked with [facility] doctor installation helper who was familiar with the patient's case. Seems patient's bilirubin was 11.4 on discharge from [facility] and today 11.8. Also CT abdomen pelvis seems no acute findings and [facility] recommended to observe patient here and consult them if necessary. Patient denies any fevers. No headache. Has some back pain from abdominal bloating. Some nausea. Poor appetite. No difficulty swallowing. Has dry cough. Has on and off runny nose. No chest pain. Has some shortness of breath on exertion. Normal bowel and bladder movements. Says he cannot ambulate much because of shortness of breath on exertion. Currently hemodynamically stable. Past medical history as mentioned above. Past surgical history. Colonoscopy. History of surgery of liver. ERCP. S/p cholecystectomy. Social history. History of smoking present. No alcohol use. No drug use. Family history. Mother had OH. And hypertension. Father had cancer. Paternal aunt has colon cancer. Admission Exam Per Admitting Provider General- Not in distress. Head- atraumatic Eyes- PERRL. ENT- oropharynx clear Neck- supple, no JVD Lungs- clear to auscultation no wheezing or crackles. Heart- regular rhythm; no murmur, no gallop. Abdomen- normal bowel sounds, distended, mild diffuse tender. Extremities- no pretibial edema. Neuro- alert, oriented x 3; PERRL, no facial palsy; no dysarthria;non focal. Skin- yellowish discoloration. Principal Diagnosis Ascites, abdominal discomfort Hx of colon ca w/ liver metastases Discharge Exam General- WD/WN M in NAD Head- atraumatic Eyes- PERRL. ENT- oropharynx clear Neck- supple, no JVD Lungs- clear to auscultation no wheezing or crackles. Heart- regular rhythm; no murmur, no gallop. Abdomen- normal bowel sounds, + somewhat distended (but improved), nontender to palpation (improved). Extremities- no pretibial edema. Neuro- alert, oriented x 3; PERRL, no facial palsy; no dysarthria;moves extremities Skin- yellowish discoloration/ jaundice. Discharge Data Allergies Allergy/AdvReac Type Severity Reaction Status Date / Time No Known Allergies Allergy Verified 01/04/23 13:38 Consultations 01/19/23 23:00 ED Decision to Admit Stat 01/20/23 08:00 Consult Gastroenterology Routine Consult Nephrology Routine Ordered Studies 01/19/23 18:37 CT Abd and Pelvis [CT abd pelvis IV con only] Stat FINDINGS: Lung bases: Dependent atelectasis bilaterally. Pleural space: Moderate bilateral pleural effusions. Mediastinum: Mild prominence of the santamaria of the distal esophagus may represent esophagitis. ABDOMEN: Liver: Hypoattenuating masses, most prominently in the right liver, concerning for hepatic metastases. Surgical clips along the liver. Gallbladder and bile ducts: Prior cholecystectomy. Common bile duct stent in place. Pneumobilia. Pancreas: Mild atrophy of the pancreas. No ductal dilation. Spleen: Unremarkable. No splenomegaly. Adrenals: Unremarkable. No mass. Kidneys and ureters: Unremarkable. No hydronephrosis or obstructing stone. Stomach and bowel: Wall thickening of the stomach may be secondary to under distention versus gastritis versus neoplasm. Asymmetric thinning of the wall of the gastric antrum appears similar compared to prior exam. Mild prominence of the santamaria of the colon may be secondary to underdistention. Colitis is not excluded. Fluid and gas-filled small bowel loops with mild prominence of the small bowel santamaria. Question enteritis. PELVIS: Appendix: No findings to suggest acute appendicitis. Bladder: Unremarkable. No mass. Reproductive: Unremarkable as visualized. ABDOMEN and PELVIS: Intraperitoneal space: Large amount of ascites. No free air. Bones/joints: Degenerative changes of the spine. Bilateral L4 pars defects. Grade 1 anterolisthesis of L4 on L5. No acute fracture. No dislocation. Soft tissues: Mild bilateral gynecomastia. Small umbilical hernia containing fat and fluid. [place] protrusion along the upper anterior abdominal wall. Vasculature: Atherosclerotic changes of the vasculature. No aortic aneurysm or dissection. Lymph nodes: Unremarkable. No enlarged lymph nodes. IMPRESSION: 1. Mild prominence of the santamaria of the distal esophagus may represent esophagitis. 2. Wall thickening of the stomach may be secondary to under distention versus gastritis versus neoplasm. Asymmetric thinning of the wall of the gastric antrum appears similar compared to prior exam. 3. Hypoattenuating masses again noted, most prominently in the right liver, concerning for hepatic metastases. 4. Mild prominence of the santamaria of the colon may be secondary to underdistention. Colitis is not excluded. 5. Fluid and gas-filled small bowel loops with mild prominence of the small bowel santamaria. Question enteritis. 6. Large amount of ascites. 7. Moderate bilateral pleural effusions. 01/20/23 13:17 IR paracentesis abd w/img US Routine IMPRESSION: Successful ultrasound-guided paracentesis with removal of 2.8 L of ascitic fluid Hospital Course (1) Elevated LFTs: 62-year-old male with past medical significant for rectal cancer stage IV with metastatic to liver and acquired thrombocytopenia present abdominal pain and elevated LFTs. Elevated LFTs History of rectal cancer stage IV with mets to liver Recently he had had biliary stent placement and was transferred to [place] where stent exchange was done Total bili 11.8 seems to close to discharged from [place] couple of days ago ER talk to [facility] on-call and was okay to observe patient here in the hospital and to call them if necessary We will follow repeat labs Consulted GI - and recommended paracentesis Pt underwent paracentesis w/ 2.8L fluid removed Pt is feeling much better and denies any more abd. pain. He wants to be discharged home. Ok to Dc per GI Ascites May need to be tapped Consulted GI for recommendations - as above Hyponatremia Sodium 127 -> 131 We will follow urine sodium and urine osmolality and serum osmolality Getting gentle fluids Consulted nephrology - NEPHRO D/C RECS K 20 mEq daily aldactone 12.5 mg daily furosemide 10 mg daily BMP w/in one week at pcp f/u f/u in neph clinic for further electrolyte/volume mgt hospital d/c appt w/ my MD partners or myself (Dr. Prather) in 3-4 wks w/ BMP, serum osms, urine Na, urine osms 3-5 days before appt to be ordered by neph RN 1.5L daily FR at d/c <2 gm daily Na in diet at d/c Esophagitis On Protonix Hypocalcemia checked vitamin D level - low - started supplement Follow up as outpt / pcp and nephrology History of thrombocytopenia Platelets 116 Monitor Total Time Total Time Spent Total Time Spent (In Minutes): 40 Discharge Plan Discharge Items Patient Disposition: Home - Self-Care Reason For Visit: ABDOMINAL PAIN, HYPONATREMIA Discharge Diagnosis: Ascites, abdominal discomfort Hx of colon ca w/ liver metastases Activity: Per Instructions section Non-emergency contact: Primary Care Provider, Specialist, Slitting Machine Feeder, Timber Framer and Oncologist Call non-emergency contact if: you have any medication questions and your symptoms worsen Follow-up/Referrals: Zoë Prather MD, PhD [Physician] - (The Nephrology office will contact you for a follow up appointment.) Jose Baeza MD [Primary Care Provider] - (Date & Time 01/24/2023 4:00 PM Provider Vitaly Quan MD Department Family Medicine [facility] ) Diet: Full liquid and Low Sodium (2gm) Fluids: 1200ml (5 cups) Diet Comment: advance as tolerated Addtl Attending Provider Instructions: Follow up with primary care physician within 1 week. The appointment was scheduled for you for 01/24/2023. You will need blood work - BMP at this appointment. You will also need to follow up with your oncologist, and likely supervisor assembly. Your sodium level was low during this hospital admission and therefore will need follow up blood work and follow up appointment with nephrology in 3-4 weeks. You will be contacted about the appointment. Blood work needed at that time - BMP, serum osms, urine Na, urine osms 3-5 days before appt to be ordered by nephrology RN. Nephrology also recommend starting following medications: Potassium supplement 20 mEq daily, Spironolactone 12.5 mg daily, Furosemide 10 mg daily. Lastly, your vit. D was found low - started supplement in the hospital - take it weekly as prescribed. Pending Studies at Discharge: No Stand-Alone Forms: My [facility], Smoking Cessation Medications and DC Order Prescriptions: New furosemide 20 mg tablet 10 mg PO DAILY Qty: 14 0RF spironolactone 25 mg tablet 12.5 mg PO DAILY Qty: 14 0RF potassium chloride 20 mEq tablet extended release 20 meq PO DAILY Qty: 14 0RF ergocalciferol (vitamin D2) 1,250 mcg (50,000 unit) Capsule 50,000 unit PO Q7D Qty: 7 0RF Continued pantoprazole 40 mg tablet,delayed release (DR/EC) 40 mg PO BID amoxicillin-pot clavulanate 875-125 mg tablet 1 tab PO UD Discharge Orders: Discharge Order (Routine); Ordered 01/21/23 Ordered By: Samuel Melton Admission Data Admit Date/Time: 01/20/23 00:59 Attending Provider: Samuel Melton Admit Provider: Haresh Reed Primary Care Provider: Jose Baeza Other Providers: Haresh Reed ; Parish Hernandez ; Zo[facility] Prather ; [facility]
[2023-01-21] MEDS ORDERED: HEPARIN 100 UNIT/ML 5ML FLUSH FLUSH STA (13:04)
== END 2023-01-21 13:50 | disposition home or self-care (01) | DRG 948 ==
LOC: ED 16:30 → EDINP 01-20 00:59 → 2N 01-20 15:28